=== PATIENT | female | born 1980 | race Two or more races ===

== ENCOUNTER → 2019-03-09 | Outpatient (CLI) | payer OTHER | END | disposition home or self-care (01) | LOC: MAMO-SONO 14:57 | DX: Z12.31 Encounter for screening mammogram for malignant neoplasm of breast (principal) ==

== ENCOUNTER 2019-03-11 08:58 | Outpatient (CLI) | payer OTHER | END 2019-03-11 09:05 | disposition home or self-care (01) | LOC: LAB 08:58 | DX: E03.8 Other specified hypothyroidism (principal); D64.89 Other specified anemias; R73.03 Prediabetes; R31.9 Hematuria, unspecified; E55.9 Vitamin D deficiency, unspecified ==

== ENCOUNTER → 2019-09-06 | Emergency (ER) | payer OTHER ==
[~2019-09-06] VITALS: Ht 172.7 cm; Wt 81.6 kg
== END | disposition left against medical advice (07) ==
LOC: ER 00:02
DX: Z53.20 Procedure and treatment not carried out because of patient's decision for unspecified reasons (principal)

== ENCOUNTER 2024-10-20 18:03 | Emergency (ER) | payer OTHER ==
[~2024-10-20] VITALS: Ht 172.7 cm; Wt 77.1 kg
[2024-10-20] MEDS ORDERED: ROSUVASTATIN CA10 MG PO (18:12)
[2024-10-20 18:13] VITALS: BP 119/84; O2SAT 100
[2024-10-20] MEDS ORDERED: KETOROLAC TROMETHAMINE 60 MG VIAL IM ONE ×2 (20:00→20:07)
[2024-10-21] MEDS ORDERED: PERCOCET 10-321 EACH PO (00:28)
== END 2024-10-21 02:53 | disposition home or self-care (01) ==
LOC: ER 18:05
DX: S82.002A Unspecified fracture of left patella, initial encounter for closed fracture (principal)